=== PATIENT | female | born 1985 | race Two or more races ===

== ENCOUNTER 2022-10-25 16:49 | Emergency (ER) | payer OTHER ==
[~2022-10-25] VITALS: Ht 157.5 cm; Wt 56.7 kg
[2022-10-25 17:07] VITALS: BP 108/67
--- NOTE | 2022-10-25 20:59 | NUR ---
PT LEFT WITHOUT BEING SEEN BY DR SOWMYA HERNÁNDEZ AWARE
== END 2022-10-25 20:59 | disposition left against medical advice (07) ==
LOC: ER 18:02
DX: R53.83 Other fatigue (principal)